=== PATIENT | female | born 1955 | race Caucasian/White ===

== ENCOUNTER 2019-08-06 04:54 | Inpatient (IN) | payer OTHER ==
[2019-08-06] MEDS ORDERED: SODIUM CHLORIDE 0.9% 1,000 ML IV STA (05:19)
[2019-08-06] MEDS ORDERED: ONDANSETRON 4 MG/2 ML VIAL IVP PRN (05:23)
[2019-08-06] MEDS ORDERED: NALOXONE 0.4 MG/ML 1 ML VIAL IV PRN (05:23)
[2019-08-06 05:49] LABS: Basophils % (A) 0 %; Eosinophils # (A) 0.1 k/uL (0-0.7); Eosinophils % (A) 1 %; HCT 39.5 % (34.0-46.0); HGB 13.2 gm/dL (11.4-16.0); Lymphocytes # (A) 1.2 k/uL (1.0-4.8); Lymphocytes % (A) 16 %; MCH 30.5 pg (25.0-35.0); MCHC 33.4 g/dL (31.0-37.0); MCV 91.4 fL (80.0-100.0); Mean Platelet Volume 8.5; Monocytes # (A) 0.4 k/uL (0-1.0); Monocytes % (A) 5 %; Neutrophils # (A) 5.7 k/uL (1.3-7.7); Neutrophils % (A) 76 %; Platelet Count 164 k/uL (150-450); RBC 4.32 m/uL (3.80-5.40); RDW 12.5 % (11.5-15.5); WBC 7.4 k/uL (3.8-10.6)
--- NOTE | 2019-08-06 05:54 | ED ---
Recheck HPI - General Chief Complaint: Recheck/Abnormal Lab/Rx Stated Complaint: Abnormal Labs Time Seen by Provider: 08/06/19 05:01 Source: EMS Mode of arrival: EMS Limitations: no limitations - History of Present Illness Initial Comments: Gia is a pleasant 63-year-old female with a history of chronic back pain for which she had an outpatient MRI which incidentally noted she had a possible pancreatic duct cyst. Patient was referred outpatient to GI. On , August 04 patient developed intractable nausea and vomiting, she was evaluated an out side emergency department and her labs reveal the bilirubin of 2.9 with hyponatremia of 129. Given the patient's MRI finding of possible pancreatic duct cyst decision was made to transfer her to our hospital for evaluation by gastroenterology. Patient was treated with pain medications antibiotics and Benadryl to outpatient facility. Upon arrival here her nausea and vomiting have improved she is feeling much better. She was advised she'll be made nothing by mouth for evaluation by gastroenterology. - Related Data Allergies Allergy/AdvReac Type Severity Reaction Status Date / Time No Known Allergies Allergy Verified 08/06/19 05:20 Review of Systems ROS Statement: Those systems with pertinent positive or pertinent negative responses have been documented in the HPI. ROS Other: All systems not noted in ROS Statement are negative. Past Medical History Past Medical History: Hypertension Additional Past Medical History / Comment(s): chronic back pain, spot on panc being looked into Past Surgical History: No Surgical Hx Reported Past Psychological History: Anxiety Smoking Status: Former smoker Past Alcohol Use History: None Reported Past Drug Use History: None Reported General Exam - General Exam Comments Initial Comments: Physical Exam GENERAL: Patient is well-developed and well-nourished. Patient is nontoxic and well-hydrated and is in no distress. HENT: Normocephalic, Atraumatic. EYES: PERRL, EOMI No scleral icterus PULMONARY: Unlabored respirations. CARDIOVASCULAR: RRR Warm and well perfused extremities ABDOMEN: Non-distended Non-peritoneal SKIN: No rashes or bruising : Deferred NEUROLOGIC: Alert and oriented Normal speech Normal gait MUSCULOSKELETAL: Moving all extremities with no apparent injury PSYCHIATRIC: No SI/HI Limitations: no limitations Course Vital Signs 08/06/19 05:07 Temperature 97.8 F Pulse Rate 100 Respiratory 18 Rate Blood Pressure 117/58 O2 Sat by Pulse 98 Oximetry Medical Decision Making - Medical Decision Making Patient care was discussed with transferring physician, hemodynamically stable 63-year-old female with possible biliary or pancreatic duct cyst with recommended outpatient ERCP however the patient developed intractable nausea vomiting and was noted to have elevated bilirubin and was admitted to our hospital for evaluation by gastroenterology. At time of evaluation patient was awake alert oriented no acute distress no pain. Repeat labs were obtained at the time of admission. - Lab Data Result diagrams: 08/06/19 05:30 Lab Results 08/06/19 Range/Units 05:30 WBC 7.4 (3.8-10.6) k/uL RBC 4.32 (3.80-5.40) m/uL Hgb 13.2 (11.4-16.0) gm/dL Hct 39.5 (34.0-46.0) % MCV 91.4 (80.0-100.0) fL MCH 30.5 (25.0-35.0) pg MCHC 33.4 (31.0-37.0) g/dL RDW 12.5 (11.5-15.5) % Plt Count 164 (150-450) k/uL Neutrophils % 76 % Lymphocytes % 16 % Monocytes % 5 % Eosinophils % 1 % Basophils % 0 % Neutrophils # 5.7 (1.3-7.7) k/uL Lymphocytes # 1.2 (1.0-4.8) k/uL Monocytes # 0.4 (0-1.0) k/uL Eosinophils # 0.1 (0-0.7) k/uL Basophils # 0.0 (0-0.2) k/uL Disposition Clinical Impression: Elevated bilirubin, Nausea and vomiting Disposition: [facility] Condition: Stable Is patient prescribed a controlled substance at d/c from ED?: No Referrals: Pedrito Washburn MD [Primary Care Provider] - 1-2 days
[2019-08-06 06:15] LABS: ALT 20 U/L (4-34); AST 24 U/L (14-36); African American GFR (CKD) >90 (>60 ml/min/1.73 sqM); Albumin 3.8 g/dL (3.5-5.0); Alkaline Phosphatase 36 U/L (38-126); Amylase <30 U/L (30-110); Anion Gap 7 mmol/L; Blood Urea Nitrogen 9 mg/dL (7-17); Calcium 8.9 mg/dL (8.4-10.2); Carbon Dioxide 24 mmol/L (22-30); Chloride 102 mmol/L (98-107); Glucose 118 mg/dL (74-99); Non-African American GFR(CKD) >90 (>60 ml/min/1.73 sqM); Potassium 3.8 mmol/L (3.5-5.1); Sodium 133 mmol/L (137-145); Total Protein 6.2 g/dL (6.3-8.2)
[2019-08-06 08:36] LABS: Prothrombin Time 10.6 sec (9.0-12.0)
[2019-08-06] MEDS: PANTOPRAZOLE 40 MG/10 ML VIAL IVP SCH ×2 (09:05→20:51)
[2019-08-06] MEDS ORDERED: ALPRAZolam 1 MG TAB PO PRN (10:16)
[2019-08-06] MEDS ORDERED: ACETAMINOPHEN TAB 325 MG TAB PO PRN (10:16)
[2019-08-06 12:01] VITALS: BMI 21.4
[2019-08-06 12:14] LABS: Bilirubin, Delta 0.3 mg/dL (0.0-0.2); Bilirubin,Unconjugated 2.7 mg/dL (0.0-1.1)
[2019-08-06] MEDS: LISINOPRIL-HCTZ 20-25 MG 1 EACH TAB PO SCH (12:39)
[2019-08-06] MEDS: GABAPENTIN 300 MG CAP PO SCH ×2 (12:39→20:51)
[2019-08-06] MEDS: ENOXAPARIN 40 MG/0.4 ML SYRINGE SQ SCH ×2 (12:39→12:44)
[2019-08-06] MEDS: BACLOFEN 10 MG TAB PO PRN (16:57)
--- NOTE | 2019-08-06 17:45 | P.HPIM ---
History of Present Illness H&P Date: 08/06/19 Chief Complaint: Upper abdominal discomfort History of presenting complaint: This is a pleasant 63-year-old patient of Dr. Washburn. Chronic stable medical conditions include hypertension, osteoarthritis, anxiety. Patient for quite a few months is been having lower back pain. After she patient been to work and developed pain. She uses the word sciatica. She had been seen in the muscles and a chiropractor. Also had an MRI done that showed herniated disc. At the same time she's been having upper abdominal symptoms she described as a burning fullness sensation. Appetite is gone down. Often the nausea sometimes vomiting. Denies any fever and chills. She is compounded by both these problems and present so finally. GI symptoms are predominantly what she is here for. Does not remember having a EGD. Review of systems: GEN.: Tired EYES: None HEENT: None NECK: None RESPIRATORY: None CARDIOVASCULAR: None GASTROINTESTINAL: [As above GENITOURINARY: None MUSCULOSKELETAL: Lower back pain with some radiation LYMPHATICS: None HEMATOLOGICAL: None PSYCHIATRY: Anxiety NEUROLOGICAL: None Past medical history to include: Hypertension, herniated group practice, osteoarthritis, anxiety, Social history: Lives alone. Patient smoked about one third pack a day for close to 30 years. Did drink some rum and Coke in the past. Denies use of recreational drugs. Physical examination: VITAL SIGNS: 98, 84, 20, 109/57, 96% room air GENERAL: BMI 21.5, laying in bed somewhat uncomfortable. EYES: Pupils equal. Conjunctiva normal. HEENT: External appearance of nose and ears normal, oral cavity grossly normal. NECK: JVD not raised; masses not palpable. HEART: First and second heart sounds are normal; no edema. LUNGS: Respiratory rate normal; decreased breath sound. ABDOMEN: Soft, epigastric tenderness, no guarding or rigidity, liver spleen not palpable, no masses palpable. PSYCH: [Alert and oriented x3; mood and affect anxious. NEUROLOGICAL: Cranial nerves grossly intact; no facial asymmetry, power and sensation grossly intact. LYMPHATICS: No lymph nodes palpable in the axilla and neck INVESTIGATIONS, reviewed in the clinical context: White count 7. 4113.2 platelets 164 potassium 3.8 creatinine 0.44 Total bilirubin 3 AST 24 ALT 20 amylase less than 30 lipase 83 COVID 19 PCR-not detected Assessment: -This is a patient's been having epigastric discomfort and worsening symptoms nausea vomiting going on for some time. Patient does use Tylenol arthritis most likely symptoms of gastritis esophagitis, peptic ulcer disease stage to be ruled out. -Herniated disc in the lower back patient's had an MRI as an outpatient now complains of sciatica like symptoms. Does want to see a back specialist. -Hyperlipidemia -Essential hypertension Plan: Patient's Tylenol arthritis has been discontinued. We'll give IV fluids. PPI. Consultation made to GI will be to EGD. Also get opinion from orthopedics Dr. Rd Amaya. Care was discussed with the patient question were answered. No nausea DVT prophylaxis Past Medical History Past Medical History: Hypertension Additional Past Medical History / Comment(s): chronic back pain, spot on panc being looked into, DDD, arthritis History of Any Multi-Drug Resistant Organisms: None Reported Past Surgical History: No Surgical Hx Reported Additional Past Surgical History / Comment(s): Chin implant Past Anesthesia/Blood Transfusion Reactions: No Reported Reaction Past Psychological History: Anxiety Smoking Status: Former smoker Past Alcohol Use History: None Reported Past Drug Use History: None Reported - Past Family History Mother Family Medical History: Cancer Additional Family Medical History / Comment(s): colon CA Father Family Medical History: Myocardial Infarction ([place]) Sister(s) Family Medical History: Cancer Additional Family Medical History / Comment(s): Lung CA Brother(s) Family Medical History: COPD Medications and Allergies Home Medications Medication Instructions Recorded Confirmed Type ALPRAZolam [Xanax] 1 mg PO QID PRN 08/06/19 08/06/19 History Acetaminophen [Tylenol Arthritis] 650 mg PO TID PRN 08/06/19 08/06/19 History Atorvastatin Calcium [Lipitor] 80 mg PO HS 08/06/19 08/06/19 History Baclofen [Lioresal] 20 mg PO Q8H PRN 08/06/19 08/06/19 History Cholecalciferol [Vitamin D3 (25 1,000 unit PO DAILY 08/06/19 08/06/19 History Mcg = 1000 Iu)] Gabapentin [Neurontin] 300 mg PO BID 08/06/19 08/06/19 History Lisinopril-Hctz 20-25 mg 1 tab PO DAILY 08/06/19 08/06/19 History [Zestoretic 20-25] Vitamin B Complex 1 cap PO DAILY 08/06/19 08/06/19 History Allergies Allergy/AdvReac Type Severity Reaction Status Date / Time amoxicillin Allergy Rash/Hives Verified 08/06/19 07:56 ampicillin Allergy Rash/Hives Verified 08/06/19 07:56 Physical Exam Vitals: Vital Signs Temp Pulse Pulse Resp BP BP Pulse Ox 08/06/19 05:07 97.8 F 100 18 117/58 98 08/06/19 05:00 98.0 F 84 20 109/57 96 Intake and Output 08/05/19 08/06/19 08/06/19 22:59 06:59 14:59 Other: Weight 56.699 kg Results CBC & Chem 7: 08/06/19 05:30 08/06/19 05:30 Labs: Abnormal Lab Results - Last 24 Hours (Table) 08/06/19 Range/Units 05:30 Sodium 133 L (137-145) mmol/L Creatinine 0.44 L (0.52-1.04) mg/dL Glucose 118 H (74-99) mg/dL Total Bilirubin 3.0 H (0.2-1.3) mg/dL Alkaline Phosphatase 36 L (38-126) U/L Total Protein 6.2 L (6.3-8.2) g/dL Amylase <30 L (30-110) U/L Thrombosis Risk Factor Assmnt - Choose All That Apply Any of the Below Risk Factors Present?: No Other Risk Factors: Yes Each Risk Factor Represents 2 Points: Age 61-74 years Other congenital or acquired thrombophilia - If yes, enter type in comment: No Thrombosis Risk Factor Assessment Total Risk Factor Score: 2 Thrombosis Risk Factor Assessment Level: Low Risk
[2019-08-06] MEDS ORDERED: ATORVASTATIN 80 MG TAB PO SCH (21:00)
--- NOTE | 2019-08-06 23:02 | CONS ---
CONSULTATION DATE OF DICTATION: 08/06/2019 REASON FOR CONSULTATION: Abdominal pain, nausea, vomiting. HISTORY OF PRESENT ILLNESS: The patient is a 63-year-old pleasant white female who was admitted to the hospital because of abdominal pain, nausea, vomiting for the last few days' duration. She went to the emergency room at [facility], where she underwent a CT of the abdomen and pelvis that showed no evidence of acute abdomen. Small renal cysts noted. Scattered sigmoid diverticulosis noted. She was transferred to [facility] for further evaluation. By the time I examined the patient, she was feeling much better. Abdominal pain has resolved. Nausea and vomiting have significantly improved. On a regular diet, tolerating well. She has been having intermittent nausea, vomiting and epigastric discomfort with heartburn for almost 10 years' duration. She denies any NSAID use. No prior history of endoscopy. No prior history of peptic ulcer disease. She had MRI of the abdomen done in June of 2019 that revealed isolated dilation of main pancreatic duct measuring 3 x 0.8 cm with no surrounding inflammation. An ERCP was recommended. The patient has an appointment to see me in the office in 2 weeks to discuss this further. PAST MEDICAL HISTORY: Her past medical history is significant for degenerative joint disease, hypertension, chronic back pain, anxiety. MEDICATIONS: Medications at home include vitamin B, vitamin D, Tylenol, lisinopril, gabapentin, baclofen, atorvastatin and Xanax. ALLERGIES: PENICILLIN, AMOXICILLIN. SOCIAL HISTORY: No smoking. No alcohol use. FAMILY HISTORY: Unremarkable. PAST SURGICAL HISTORY: Colonoscopy 2 years ago. REVIEW OF SYSTEMS: CARDIOPULMONARY: No chest pain or shortness of breath. GENITOURINARY: No dysuria or hematuria. MUSCULOSKELETAL: Chronic back pain. NEUROLOGY: Unremarkable. PSYCHIATRY: Unremarkable. ENT/VISION: Unremarkable. CONSTITUTIONAL: No recent weight loss. No fever, chills, night sweats. PHYSICAL EXAMINATION: She appears comfortable. No apparent distress. Vital signs are stable. Blood pressure 97/62, pulse rate 68, temperature 98.5. HEENT examination unremarkable. Conjunctivae pink. Sclerae anicteric. Oral cavity no lesions. NECK: No JVD or lymph node enlargement. CHEST: Clear to auscultation. HEART: Regular rate and rhythm. ABDOMEN: Soft. Bowel sounds are positive. No organomegaly. Mild tenderness in the epigastric area. EXTREMITIES: No pedal edema. SKIN: No rashes. NEUROLOGIC: Alert and oriented x3. No focal deficits. LABS: WBC 7.4, hemoglobin 13.2, platelets normal. Basic metabolic panel is within normal limits. T-bilirubin was 3, unconjugated 2.7, conjugated 0.3. ALT and AST are normal. Amylase and lipase are normal. IMPRESSION: 1. Epigastric pain associated with nausea, vomiting on and off for the last few years' duration. Most likely her symptoms are related to gastroesophageal reflux disease. Cannot rule out peptic ulcer disease. No history of EGD in the past. She is presently doing well on Protonix 40 mg daily. 2. Abnormal pancreatic duct with isolated dilation in the pancreatic duct noted on MRI of the abdomen in June of 2019. No pancreatic mass seen. Patient has an appointment to see me in the office in 2 weeks. 3. Hyperbilirubinemia, mainly uncomplicated, with normal serum transaminases. Possibly Gilbert's syndrome. 4. Chronic back pain. RECOMMENDATIONS: 1. Continue Protonix 40 mg daily. 2. Advance diet as tolerated. 3. Will schedule her for an MRCP if she is going to be in the hospital. 4. If she is discharged, she can follow up in the office in 2 weeks as scheduled. Thank you for this consultation. MMODL / IJN: [id number] /
[2019-08-07] MEDS: BACLOFEN 10 MG TAB PO PRN (02:00)
[2019-08-07 04:40] LABS: Appearance,Urine Clear (Clear); Bilirubin,Urine Negative (Negative); Blood,Urine Negative (Negative); Color,Urine Light Yellow; Glucose,Urine (UA) Negative (Negative); Ketones,Urine Negative (Negative); Leukocyte Esterase,Urine Negative (Negative); Nitrite,Urine Negative (Negative); Protein,Urine Negative (Negative); Specific Gravity,Urine 1.003 (1.001-1.035); Urobilinogen,Urine <2.0 mg/dL (<2.0)
[2019-08-07] MEDS: ENOXAPARIN 40 MG/0.4 ML SYRINGE SQ SCH (07:36)
--- NOTE | 2019-08-07 07:37 | P.CNOR ---
History of Present Illness - [facility] Consult date: 08/07/19 Consult reason: back pain History of present illness: patient's a pleasant 63-year-old female who is admitted to hospital in regards to her severe abdominal pain. She is continuing workup for abdominal pain. She does have history of low back pain which is been chronic for her and has been having some worsening of her low back or the past several months. She has had some workup of her lower back and even underwent an MRI and recently had an epidural steroid injection at her lower back per Dr. Sands. The patient says that the epidural seems to be helping her quite well. She says that her back and lower extremity significant improved after the injection. She says that currently that is not a significant problem for her. She denies any weakness. She denies any problems in her lower extremity is currently. She is primarily focused on her abdomen. Review of Systems denies any lower extremity numbness tingling or weakness. She admits to low back pain and lower extremity radicular symptoms but significant improvement since her epidural steroid injection. Past Medical History Past Medical History: Hypertension Additional Past Medical History / Comment(s): chronic back pain, spot on panc being looked into, DDD, arthritis History of Any Multi-Drug Resistant Organisms: None Reported Past Surgical History: No Surgical Hx Reported Additional Past Surgical History / Comment(s): Chin implant Past Anesthesia/Blood Transfusion Reactions: No Reported Reaction Past Psychological History: Anxiety Smoking Status: Former smoker Past Alcohol Use History: None Reported Past Drug Use History: None Reported - Past Family History Mother Family Medical History: Cancer Additional Family Medical History / Comment(s): colon CA Father Family Medical History: Myocardial Infarction ([place]) Sister(s) Family Medical History: Cancer Additional Family Medical History / Comment(s): Lung CA Brother(s) Family Medical History: COPD Medications and Allergies Home Medications Medication Instructions Recorded Confirmed Type ALPRAZolam [Xanax] 1 mg PO QID PRN 08/06/19 08/06/19 History Acetaminophen [Tylenol Arthritis] 650 mg PO TID PRN 08/06/19 08/06/19 History Atorvastatin Calcium [Lipitor] 80 mg PO HS 08/06/19 08/06/19 History Baclofen [Lioresal] 20 mg PO Q8H PRN 08/06/19 08/06/19 History Cholecalciferol [Vitamin D3 (25 1,000 unit PO DAILY 08/06/19 08/06/19 History Mcg = 1000 Iu)] Gabapentin [Neurontin] 300 mg PO BID 08/06/19 08/06/19 History Lisinopril-Hctz 20-25 mg 1 tab PO DAILY 08/06/19 08/06/19 History [Zestoretic 20-25] Vitamin B Complex 1 cap PO DAILY 08/06/19 08/06/19 History Allergies Allergy/AdvReac Type Severity Reaction Status Date / Time amoxicillin Allergy Rash/Hives Verified 08/06/19 07:56 ampicillin Allergy Rash/Hives Verified 08/06/19 07:56 Physical Examination Osteopathic Statement: *. No significant issues noted on an osteopathic structural exam other than those noted in the History and Physical/Consult. - L Spine: dermatomal strength & reflexes bilateral Strength: hip flexion: 5/5 (on exam at her back there is no open wounds lacerations or abrasions. There is no erythema. Lower extremity sustained dorsal flexion plantar flexion and EHL intact. Thighs and calves soft nontender.) Results - Labs Labs: Abnormal Lab Results - Last 24 Hours (Table) 08/06/19 Range/Units 05:30 Sodium 133 L (137-145) mmol/L Creatinine 0.44 L (0.52-1.04) mg/dL Glucose 118 H (74-99) mg/dL Total Bilirubin 3.0 H (0.2-1.3) mg/dL Unconjugated Bilirubin 2.7 H (0.0-1.1) mg/dL Delta Bilirubin 0.3 H (0.0-0.2) mg/dL Alkaline Phosphatase 36 L (38-126) U/L Total Protein 6.2 L (6.3-8.2) g/dL Amylase <30 L (30-110) U/L H & H 08/06/19 Range/Units 05:30 Hgb 13.2 (11.4-16.0) gm/dL Hct 39.5 (34.0-46.0) % Coagulation 08/06/19 Range/Units 05:30 INR 1.0 (<1.2) Result Diagrams: 08/06/19 05:30 08/06/19 05:30 - Diagnostic results Lumbar MRI with contrast: report reviewed (reports of her lumbar MRI reviewed. Shows some disc degeneration with some evidence of central and foraminal stenosis.) Assessment and Plan Assessment: abdominal pain continuing workup with GI and possibly surgery Chronic low back pain with lower extremity radiculopathy, improving with conservative treatment and recent outpatient epidural steroid injection No evidence of lower extremity neurologic change Plan: abdominal pain continuing workup with GI and possibly surgery Chronic low back pain with lower extremity radiculopathy, improving with conservative treatment and recent outpatient epidural steroid injection No evidence of lower extremity neurologic change the patient's lumbar spine has had improvement with her conservative management. She underwent a recent epidural steroid injection which she is happy with. She feels she is making progress in terms of her low back and lower extremities. In terms of her lumbar spine is okay for her to follow up on an outpatient basis. She should continue with her pain management appointments and can follow-up with me on an as-needed basis. The patient is continuing her treatment for her abdominal pain. She is under going current workup and further evaluation treatment as per medicine GI and possibly with surgery.
[2019-08-07] MEDS: PANTOPRAZOLE 40 MG/10 ML VIAL IVP SCH (07:40)
[2019-08-07] MEDS: GABAPENTIN 300 MG CAP PO SCH (07:40)
[2019-08-07] MEDS: LISINOPRIL-HCTZ 20-25 MG 1 EACH TAB PO SCH (07:40)
[2019-08-07 08:18] LABS: ALT 27 U/L (4-34); AST 43 U/L (14-36); African American GFR (CKD) >90 (>60 ml/min/1.73 sqM); Albumin 4.6 g/dL (3.5-5.0); Alkaline Phosphatase 46 U/L (38-126); Anion Gap 8 mmol/L; Blood Urea Nitrogen 10 mg/dL (7-17); Calcium 9.8 mg/dL (8.4-10.2); Carbon Dioxide 30 mmol/L (22-30); Chloride 100 mmol/L (98-107); Glucose 111 mg/dL (74-99); Non-African American GFR(CKD) >90 (>60 ml/min/1.73 sqM); Potassium 3.6 mmol/L (3.5-5.1); Sodium 138 mmol/L (137-145); Total Bilirubin 3.3 mg/dL (0.2-1.3); Total Protein 7.4 g/dL (6.3-8.2)
--- NOTE | 2019-08-07 12:03 | MR ---
EXAMINATION TYPE: MR MRCP DATE OF EXAM: 08/07/2019 COMPARISON: None. HISTORY: Dilated pancreatic duct, nausea/vomiting Standard multiplanar, multisequence MRI departmental protocol Multiplanar, multisequence images of the were acquired. Diffusion weighted imaging was performed. FINDINGS: The liver is upper limits of normal in size. There is minimal signal dropout on the out of phase imaging suggesting mild fatty infiltration of the liver. The gallbladder has a normal appearanc e. The common hepatic and common bile ducts appear normal. The pancreatic duct is prominent measuring 4 mm. The more distal duct is more normal appearance. Ther e is a 6.5 mm cyst in the proximal body of the pancreas. Both adrenal glands appear normal. The spleen is unremarkable. There are simple appearing cysts in both kidneys there is a 2.3 cm cyst anteriorly in the lower pole of the right kidney. There is a 2.3 cm cyst in the upper pole of the left kidney. IMPRESSION: 1. MILD FATTY INFILTRATION OF THE LIVER. 2. TINY, 6.5 MM CYST IN THE PROXIMAL BODY OF THE PANCREAS. 3. PROMINENCE OF THE PANCREATIC DUCT. DEDICATED PANCREATIC CT VERSUS MRI OF THE PANCREAS WITH CONTRAS T WOULD BE SUGGESTED.
[2019-08-07 12:08] VITALS: BP 111/70; PULSE 81; RESP 17; TEMP 96.5
--- NOTE | 2019-08-07 16:57 | PN ---
PROGRESS NOTE DATE OF SERVICE: 08/07/2019 The patient is a 63-year-old pleasant white female admitted to hospital with epigastric pain, nausea, vomiting on and off for the last few days duration. She was started on Protonix 40 mg q.12 hours and symptoms have significantly improved. She was noted to have a slightly dilated pancreatic duct from recent MRI of the abdomen and hence she was scheduled for an MRCP which was done this afternoon. The MRCP showed mild fatty infiltration of the liver. There was a tiny 6 mm cyst in the proximal body of the pancreas, prominence of the pancreatic duct noted, but no obvious masses identified. PHYSICAL EXAMINATION: She appears comfortable, no apparent distress. Vital signs are stable. Blood pressure is 112/48, pulse rate 81, temperature 96.5. HEENT examination unremarkable. Conjunctivae pink. Sclerae anicteric. Oral cavity, no lesions. NECK: No JVD or lymph node enlargement. CHEST: Clear to auscultation. HEART: Regular rate and rhythm. ABDOMEN: Soft. Bowel sounds are positive. No organomegaly. EXTREMITIES: No pedal edema. SKIN; No rashes. NEUROLOGIC: Alert and oriented x3. No focal deficits. LABS: From today WBC 7.4, hemoglobin 13.2, platelets normal. Basic metabolic panel is within normal limits. IMPRESSION: 1. Epigastric pain, nausea, vomiting, possibly related to gastroesophageal reflux disease on Protonix 40 mg daily and he is doing much better. 2. Anxiety. 3. Abnormal pancreatic ductal dilation noted on MRI of the abdomen. MRCP showed mild dilation of the pancreatic duct, but no obvious pancreatic mass is identified. There was a small pancreatic cyst noted in the tail of the pancreas of unclear etiology. RECOMMENDATION: 1. Continue with Protonix 40 mg daily. 2. Xanax as needed. 3. Patient can be discharged home with an outpatient followup in 2 weeks. Thank you for this consultation. MMODL / IJN: [id number] /
--- NOTE | 2019-08-07 19:01 | P.DS ---
Providers Date of admission: 08/06/19 05:23 Expected date of discharge: 08/07/19 Attending physician: Zion Willett Consults: 08/06/19 05:24 Consult Physician Urgent Consulting Provider: Miriam Kraus Consult Reason/Comments: elevated bili, abnormal pancreatic duct on MRI, N/V Do you want consulting provider notified?: Yes 08/06/19 11:06 Consult Physician Routine Consulting Provider: Kareem Amaya Consult Reason/Comments: back pain Do you want consulting provider notified?: Yes Primary care physician: [facility] Course: Chief Complaint: Upper abdominal discomfort History of presenting complaint: This is a pleasant 63-year-old patient of Dr. Washburn. Chronic stable medical conditions include hypertension, osteoarthritis, anxiety. Patient for quite a few months is been having lower back pain. After she patient been to work and developed pain. She uses the word sciatica. She had been seen in the muscles and a chiropractor. Also had an MRI done that showed herniated disc. At the same time she's been having upper abdominal symptoms she described as a burning fullness sensation. Appetite is gone down. Often the nausea sometimes vomiting. Denies any fever and chills. She is compounded by both these problems and present so finally. GI symptoms are predominantly what she is here for. Does not remember having a EGD. patient is seen by Dr[facility]. To continue current medication treatment plan. Seen by Dr. Benjie Kraus. MRCP was done. patient started on PPI. Tylenol arthritis to be discontinued. She'll follow-up in the office with Dr. Fraser. Care was discussed at length with the patient. Feeling much better today.also discussed at length with Dr. Fraser. Consultation: Dr. Amaya from orthopedics Dr. Benjie Kraus from GI Physical examination: VITAL SIGNS: 96.5, 81, 17, 111/70, 94% on room air GENERAL: sitting up, comfortable EYES: Pupils equal. Conjunctiva normal. HEENT: External appearance of nose and ears normal, oral cavity grossly normal. NECK: JVD not raised; masses not palpable. HEART: First and second heart sounds are normal; no edema. LUNGS: Respiratory rate normal; decreased breath sound. ABDOMEN: Soft, epigastric tenderness, no guarding or rigidity, liver spleen not palpable, no masses palpable. PSYCH: [Alert and oriented x3; mood and affect anxious. INVESTIGATIONS, reviewed in the clinical context: Potassium 3.6 creatinine 0.61 White count 7. 4113.2 platelets 164 potassium 3.8 creatinine 0.44 Total bilirubin 3 AST 24 ALT 20 amylase less than 30 lipase 83 COVID 19 PCR-not detected UA negative MRCP-mild fatty infiltration of liver, tiny 6.5 mm cyst in the proximal body of the pancreas, prominence of the pancreatic duct. Assessment: -possible gastritis and esophagitis -Herniated disc in the lower back, with radiculopathy -Hyperlipidemia -Essential hypertension -Anxiety not otherwise specified disposition: Home Patient Condition at Discharge: Stable Plan - Discharge Summary Discharge Rx Participant: No New Discharge Prescriptions: New Acetaminophen Tab [Tylenol] 650 mg PO TID PRN tab PRN Reason: Pain Omeprazole [PriLOSEC] 20 mg PO AC-BID #60 cap Continue Cholecalciferol [Vitamin D3 (25 Mcg = 1000 Iu)] 1,000 unit PO DAILY Lisinopril-Hctz 20-25 mg [Zestoretic 20-25] 1 tab PO DAILY Gabapentin [Neurontin] 300 mg PO BID Baclofen [Lioresal] 20 mg PO Q8H PRN PRN Reason: muscle spasms Atorvastatin Calcium [Lipitor] 80 mg PO HS ALPRAZolam [Xanax] 1 mg PO QID PRN PRN Reason: Anxiety Vitamin B Complex 1 cap PO DAILY Discontinued Acetaminophen [Tylenol Arthritis] 650 mg PO TID PRN PRN Reason: Pain Discharge Medication List ALPRAZolam [Xanax] 1 mg PO QID PRN 08/06/19 [History] Atorvastatin Calcium [Lipitor] 80 mg PO HS 08/06/19 [History] Baclofen [Lioresal] 20 mg PO Q8H PRN 08/06/19 [History] Cholecalciferol [Vitamin D3 (25 Mcg = 1000 Iu)] 1,000 unit PO DAILY 08/06/19 [History] Gabapentin [Neurontin] 300 mg PO BID 08/06/19 [History] Lisinopril-Hctz 20-25 mg [Zestoretic 20-25] 1 tab PO DAILY 08/06/19 [History] Vitamin B Complex 1 cap PO DAILY 08/06/19 [History] Acetaminophen Tab [Tylenol] 650 mg PO TID PRN tab 08/07/19 [Rx] Omeprazole [PriLOSEC] 20 mg PO AC-BID #60 cap 08/07/19 [Rx] Follow up Appointment(s)/Referral(s): Kareem Amaya DO [Doctor of Osteopathic Medicine] - 1 Week Pedrito Washburn MD [Primary Care Provider] - 1-2 days Miriam Kraus MD [STAFF PHYSICIAN] - 1 Week Patient Instructions/Handouts: Omeprazole (By mouth), Jaundice (DC), MRCP (Magnetic Resonance Cholangiopancreatography) (GEN) Activity/Diet/Wound Care/Special Instructions: diet as tolerated Activity limited until seen by Dr. toure on Friday to schedule appointments -office closed on weekends Discharge Disposition: HOME SELF-CARE
== END 2019-08-07 13:30 | disposition home or self-care (01) | DRG 392 ==
LOC: EC 04:54 → 5NMEDONC 05:23
PROVIDERS: ADMIT Hospitalist; ATTEND Hospitalist
DX: K29.70 Gastritis, unspecified, without bleeding (principal); E87.1 Hypo-osmolality and hyponatremia; K86.2 Cyst of pancreas; K20.9 Esophagitis, unspecified; Z11.59 Encounter for screening for other viral diseases; K76.0 Fatty (change of) liver, not elsewhere classified; G89.29 Other chronic pain; I10 Essential (primary) hypertension; F41.9 Anxiety disorder, unspecified; M19.90 Unspecified osteoarthritis, unspecified site; M51.16 Intervertebral disc disorders with radiculopathy, lumbar region; N28.1 Cyst of kidney, acquired; K57.30 Diverticulosis of large intestine without perforation or abscess without bleeding; E78.5 Hyperlipidemia, unspecified; Z71.3 Dietary counseling and surveillance; Z79.899 Other long term (current) drug therapy; Z87.891 Personal history of nicotine dependence; Z88.1 Allergy status to other antibiotic agents; Z88.0 Allergy status to penicillin; Z80.0 Family history of malignant neoplasm of digestive organs; Z82.49 Family history of ischemic heart disease and other diseases of the circulatory system; Z80.1 Family history of malignant neoplasm of trachea, bronchus and lung; Z82.5 Family history of asthma and other chronic lower respiratory diseases
CPT/HCPCS: 36415; 74181; 80053; 81003; 82150; 82248; 83690; 85025; 85610; 86850; 86900; 86901; 99284